=== PATIENT | female | born 1970 | race Caucasian/White ===

== ENCOUNTER → 2021-12-25 11:02 | Outpatient (BNVA) | payer OTHER, SELFPAY | PROVIDERS: Visit Provider Family Medicine | DX: G43.909 Migraine, unspecified, not intractable, without status migrainosus (principal); N95.1 Menopausal and female climacteric states; R63.5 Abnormal weight gain | CPT/HCPCS: 80053; 80061; 84443; 85025 ==

== ENCOUNTER → 2022-05-01 09:16 | Outpatient (BNVA) | payer OTHER, SELFPAY | PROVIDERS: PCP Family Medicine; Visit Provider Family Medicine | DX: R35.0 Frequency of micturition (principal); G43.909 Migraine, unspecified, not intractable, without status migrainosus; N39.0 Urinary tract infection, site not specified; R63.5 Abnormal weight gain; N95.1 Menopausal and female climacteric states | CPT/HCPCS: 81000 ==

== ENCOUNTER 2022-10-16 12:08 | Outpatient (CLI) | payer OTHER, SELFPAY ==
--- NOTE | 2022-10-16 12:17 | XR_ITS ---
WS: [id number] XR lumbar spine 6V w f/e [id number] REASON FOR EXAM: M54.40 - Lumbago with sciatica, unspecified side FINDINGS: Mild rotatory scoliosis convex left. Mild straightening of the normal lordosis. Moderate superior endplate compression deformity of L1. Intervertebral disc spaces relatively well-preserved. No spondylolysis. No significant neutral listhesis. No significant vertebral body movement with flexion and extension. No significant abnormality of the facet joints. XR/XR lumbar spine 6V w f/e [id number] IMPRESSION: Compression deformity of L1 as above. Unknown chronicity. Most likely chronic.
== END 2022-10-16 12:09 | disposition home or self-care (01) ==
PROVIDERS: PCP Family Medicine; Visit Provider Family Medicine
DX: M54.40 Lumbago with sciatica, unspecified side (principal)
CPT/HCPCS: 72114